=== PATIENT | female | born 1955 | race Caucasian/White ===

== ENCOUNTER 2019-05-21 13:26 | Emergency (ER) | payer OTHER, SELFPAY ==
[2019-05-21 13:27] VITALS: BP 163/84; PULSE 79; RESP 21; TEMP 36.7; O2SAT 99; BMI 26.6
--- NOTE | 2019-05-21 13:36 | ED.RN ---
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 PT STATES SHE IS VERY UPSET AND ANXIOUS.
--- NOTE | 2019-05-21 13:51 | EKG12_ITS ---
Test Reason : NUMBNESS Blood Pressure : / mmHG Vent. Rate : 073 BPM Atrial Rate : 073 BPM P-R Int : 134 ms QRS Dur : 076 ms QT Int : 396 ms P-R-T Axes : 029 -30 054 degrees QTc Int : 436 ms Normal sinus rhythm Left axis deviation Abnormal ECG Confirmed by CRISTI CHAIDEZ, SIERRA ([id number]), clinical editor NORY LOU ([id number]) on 05/26/2019 12:25:20 PM Referred By: LAILA Confirmed By:SIERRA COLIN MD
--- NOTE | 2019-05-21 13:53 | CT_ITS ---
STUDY: CTA HEAD AND NECK WITH CONTRAST REASON FOR EXAM: Female, 64 years old. Left-sided weakness. RADIATION DOSAGE (If Supplied By Facility): CTDIvol = ( 24.68 ) mGy, DLP = ( 1434.10 ) mGycm TECHNIQUE: CT angiography was performed with a multi-detector CT scanner. Data acquisition was obtained from the skull base through the vertex following intravenous administration of 100 IV Isovue 370. MIP images were reconstructed from the axial data set. Post-processing of the angiographic images was performed, with multiplanar reformation and 3D reconstruction. Individualized dose optimization techniques were used for this CT. COMPARISON: No relevant priors. FINDINGS: Normal bilateral petrous carotid arteries. Normal right cavernous carotid artery with a normal supraclinoid bifurcation. Normal left cavernous carotid artery with a normal supraclinoid bifurcation. Normal right A1 segments of the anterior cerebral artery. Normal left A1 segments of the anterior cerebral artery. Normal intact anterior communicating artery (ACOM). Normal bilateral A2 segments of the anterior cerebral arteries. Normal right M1 and M2 segments of the middle cerebral arteries, with a normal M1 bifurcation. Normal left M1 and M2 segments of the middle cerebral arteries, with a normal M1 bifurcation. Normal right posterior communicating artery (PCOM). Normal left posterior communicating artery (PCOM). Normal bilateral vertebral arteries. Normal basilar artery with a normal basilar bifurcation. The visualized bilateral superior cerebellar (SCA) arteries are normal. Normal bilateral P1, P2 and visualized P3 segments of the posterior cerebral arteries. There is no demonstrated aneurysm of the [place]. There is no demonstrated abnormality of the visualized brain. AORTIC ARCH: Normal visualized aortic arch. Normal origins of the brachiocephalic, left common carotid, and left subclavian arteries. RIGHT CAROTID ARTERIES: Normal right common carotid artery (CCA). Normal right common carotid bulb. Normal origin of the right internal carotid (ICA) artery without a hemodynamically significant stenosis. Normal visualized cervical portion of the right internal carotid artery. Normal origin of the right external carotid artery (ECA). LEFT CAROTID ARTERIES: Normal left common carotid artery (CCA). Normal left common carotid bulb. Normal origin of the left internal carotid (ICA) artery without a hemodynamically significant stenosis. Normal visualized cervical portion of the left internal carotid artery. Normal origin of the left external carotid artery (ECA). VERTEBRAL ARTERIES: Normal bilateral vertebral arteries. CT/CTA Head AND Neck W/ Contrast IMPRESSION: Normal CTA Head and neck with contrast. Electronically Signed: Livan Vallecillo, at 15:04 EDT , Service support ,
--- NOTE | 2019-05-21 13:55 | RAD_ITS ---
STUDY: X-RAY CHEST REASON FOR EXAM: Female, 64 years old. Left arm and facial numbness. TECHNIQUE: Single AP portable view of the chest. COMPARISON: Comparison is made with prior study dated June 11, 2010. FINDINGS: EKG electrodes are seen. The lungs are clear and expanded. There is no demonstrated pleural abnormality. Normal size heart. Normal mediastinum and mojgan. Normal visualized pulmonary arteries. Normal visualized aortic arch and descending thoracic aorta. There are diffuse degenerative changes of the visualized thoracic spine. Mild textural scoliosis. Normal visualized ribs, clavicles, and shoulders. There is no demonstrated abnormality of the visualized soft tissue structures of the upper abdomen. RAD/Chest 1 View (Portable) IMPRESSION: No acute abnormality is present. Electronically Signed: Livan Vallecillo, at 14:28 EDT , Service support ,
[2019-05-21] MEDS: 0.9% Normal Saline 1,000 ML 999 ML IV (14:07)
[2019-05-21 14:16] LABS: Absolute Lymphocyte Count 3.69 X10^3/uL (0.83-4.51); Absolute Neutrophil Count 2.2 X10^3/uL (2.0-7.7); Basophil# 0.02 X10^3/uL; Basophil% 0.3 % (0-1); Eosinophil# 0.06 X10^3/uL; Eosinophils% 0.9 % (0-5); Hematocrit 40.6 % (37-47); Hemoglobin 13.7 g/dL (12.0-15.0); Lymphocyte # 3.69 X10^3/ul (4.0); Lymphocyte % 57.7 % (19-41); Mean Corp Hgb Conc 33.7 g/dL (32-36); Mean Corpuscular Hgb 29.3 pg (27.0-32.0); Mean Corpuscular Volume 86.9 fL (81-99); Mean Platelet Vol. 9.3 fl (6.2-12.0); Monocyte# 0.39 X10^3/uL; Monocyte% 6.1 % (0-10); NRBC Flagged by Analyzer 0 % (0-5); Neutrophil # 2.23 X10^3/uL (2.7-7.7); Neutrophil % 34.8 % (47-70); Platelet Count 204 K/mm3 (150-450); RBC Distribution Width CV 12.8 % (11.6-14.6); RBC Distribution Width SD 40.6 fl (35.1-43.9); Red Blood Count 4.67 M/mm3 (4.2-5.4); White Blood Count 6.4 K/mm3 (4.4-11.0)
[2019-05-21 14:22] VITALS: BP 160/71; PULSE 70; RESP 17; O2SAT 98
[2019-05-21 14:29] LABS: Anion Gap 4 (5-15); BUN 15 mg/dL (7-18); BUN/Creat Ratio 25.9 RATIO (10-20); Calcium,Total 9.5 mg/dL (8.5-10.1); Chloride 106 mmol/L (98-107); Creatinine, Serum 0.58 mg/dL (0.55-1.02); EST Glomerular Filtration Rate 112 mL/min (>60); Est Glom Filt Rate - Afr Amer 135 mL/min (>60); Estimated Creatinine Clearance 81.06 ml/min; Glucose 105 mg/dL (74-106); Potassium 3.8 mmol/L (3.5-5.1); Sodium Level 138 mmol/L (136-145)
[2019-05-21 16:15] VITALS: BP 125/76; PULSE 76; RESP 16; O2SAT 97
--- NOTE | 2019-05-21 16:46 | ED.DCSUM_ITS ---
- ER Visit Summary Date of Service: 05/21/19 Chief Complaint: Left-sided subjective numbness and tingling. History of Present Illness: The patient is a 64 F history of hypertension high cholesterol prior PE and anxiety for which she uses as needed Xanax. Patient states she is under a lot of stress both at home with her being diagnosed with ALS and today at work she had to deal with several family members that were upset and she had a de-escalate the situation. 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 She was using the phone and felt that her face was odd and then thought she was getting numbness on her left face arm and leg. She does not believe she is ever had this before. She is never had a stroke or mini stroke. Denies any recent head injury. She is on no blood thinners. She has had no recent head injury. She denies any headache. No trouble talking. No visual change. No trouble walking or using her arms or legs. Physical Examination: Well-appearing female vital signs are stable and afebrile. HEENT exam normal. Pupils round reactive light extra motions are intact. No palsy. No facial droop. Normal speech. She has sensation on both sides of her face. Neck nontender. Lungs clear to auscultation bilaterally. Heart regular rhythm no murmur. Rate about 80. Abdomen is soft and nontender. Normal bowel sounds no peritoneal signs. Patient is moving all 4 extremities. They are neurovascularly intact. 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 Equal dorsi plantar flexion. She can lift either leg off the bed. She can raise either arm. Neurologically she is awake and alert. Her NIH score is 0. Again no facial droop. Normal speech. 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 Normal dorsi plantarflexion. Normal fingertip to nose and [id number]. After her work-up the nurses walked her in the hallway and she walked normally. Wi thout any ataxia. Test Results: CBC normal. White count of 6. Chemistries normal normal creatinine gap. EKG sinus rhythm a rate of 73 no acute signs of PA or ischemia or dysrhythmia. Chest x-ray portable one view shows no acute abnormality. Normal cardiac silhouette mediastinum. CTA head neck with and without contrast shows no acute abnormality and is read by the radiologist as normal. No signs of clot, bleed, mass nor any signs of stroke. I reviewed the test but it was read by the radiologist. Emergency Department Course and Treatment: Patient's work-up is normal. She had repeat neurologic exams all which were unchanged and normal. On repeat exam at 1640 5 PM she is starting to feel better. She says she feels less anxious. She feels like she is getting back to normal. She denies a family discussed options of admission for an MRI versus discharge. She much prefers to be discharged to home since she helps take care of her who is at bedside. She knows to return immediately if she develops worsening symptoms. Treatment Plan: Discharge to home. Follow-up with her primary care physician Dr. Rebolledo. Return if worsening symptoms. If symptoms do not totally resolve she will need an MRI. Disposition: Discharge Impression: Acute subjective left-sided tingling of uncertain etiology resolved Acute on chronic anxiety This note was generated with [employer] dictation software. It may contain incorrect words, spelling, and punctuation that were not noted in review of the chart prior to signing ED Disposition - Plan for ED Patient: Referrals: Yenifer Rebolledo MD [Primary Care Provider] -
--- NOTE | 2019-05-21 16:51 | ED.DEP ---
ED Disposition - Plan for ED Patient: Disposition: Home or Assisted Living Instructions: Paraesthesias Referrals: Yenifer Rebolledo MD [Primary Care Provider] - As soon as possible Additional Instructions: Follow-up with your doctor in the next several days. Return if trouble speaking, visual change or worsening left-sided symptoms. Also if any weakness or trouble walking. He would need to be admitted at that time and have an MRI. At this time your work-up including labs, EKG, chest x-ray and CAT scans were all normal. Your neurologic exam is normal in the emergency department.
[2019-05-21 17:02] VITALS: BP 117/70; PULSE 68; RESP 18; O2SAT 99
== END 2019-05-21 17:03 | disposition home or self-care (01) ==
PROVIDERS: Emergency Provider Emergency Medicine; Family Provider Internal Medicine; PCP Internal Medicine
DX: F41.9 Anxiety disorder, unspecified (principal); R20.2 Paresthesia of skin; I10 Essential (primary) hypertension; E78.00 Pure hypercholesterolemia, unspecified; Z86.711 Personal history of pulmonary embolism; Z79.899 Other long term (current) drug therapy
CPT/HCPCS: 36415; 70496; 70498; 71045; 80048; 85025; 93005; 96360; 99285; J7030; Q9967

== ENCOUNTER 2020-02-07 16:27 | Emergency (ER) | payer OTHER, SELFPAY ==
[2020-02-07 16:27] VITALS: BP 146/87; PULSE 79; RESP 14; TEMP 36.9; O2SAT 99; BMI 24.0
--- NOTE | 2020-02-07 16:37 | ED.DCSUM_ITS ---
- ER Visit Summary Date of Service: 02/07/20 Chief Complaint: Right wrist pain and deformity History of Present Illness: The patient is a 64 F patient has right wrist pain and deformity. She states she was outside working when she fell into a trash can. She caught herself with her right arm. She noticed a deformity on the palm side of the distal forearm/wrist area. Pain is worse with movement. No previous injuries or fractures to this area. She is not on any blood thinning medications. She tried ibuprofen without any relief. Physical Examination: Vital signs are reviewed. Right arm exam reveals tenderness palpation diffusely about the wrist and distal forearm. There is a deformity at the wrist area on the palm side. She has a 2+ radial pulse. Capillary refill is less than 2 seconds. Test Results: Right wrist x-ray reveals no acute findings Emergency Department Course and Treatment: The patient appears to have a hematoma on the right wrist. There are no broken bones. Patient was recommended to use Tylenol along with icing at home to prevent hematoma spread. She has good distal pulses and good capillary refill. Patient will follow up with her doctor next week Treatment Plan: [] Disposition: Discharge Impression: Right wrist hematoma This note was generated with [employer] dictation software. It may contain incorrect words, spelling, and punctuation that were not noted in review of the chart prior to signing ED Disposition - Plan for ED Patient: Disposition: Home or Assisted Living Instructions: ED Hematoma Referrals: Yenifer Rebolledo MD [Primary Care Provider] -
--- NOTE | 2020-02-07 17:15 | RAD_ITS ---
STUDY: X-RAY - RIGHT WRIST REASON FOR EXAM: Female, 64 years old. FALL, PAIN. BRUISING AND SWELLING TECHNIQUE: 3 view(s) of the wrist were obtained. COMPARISON: 05/03/2017 FINDINGS: Normal visualized distal radius and ulna. Normal radiocarpal articulation. Normal distal radioulnar articulation. Normal carpal bones. Normal carpal articulations. Normal carpometacarpal articulation of the thumb. Normal second through fifth carpometacarpal articulations. Normal visualized metacarpal bones. Soft tissue swelling. RAD/Wrist min 3 Views IMPRESSION: No acute osseous injury is evident. Electronically Signed: Kevin Kimbrough MD at 17:37 EDT Tel , Service support ,
[2020-02-07 18:03] VITALS: RESP 16
== END 2020-02-07 18:04 | disposition home or self-care (01) ==
PROVIDERS: Emergency Provider Emergency Medicine; PCP Internal Medicine
DX: S60.211A Contusion of right wrist, initial encounter (principal); W17.89XA Other fall from one level to another, initial encounter; Y93.9 Activity, unspecified; Y92.9 Unspecified place or not applicable; I10 Essential (primary) hypertension; F41.9 Anxiety disorder, unspecified; E78.00 Pure hypercholesterolemia, unspecified; Z79.899 Other long term (current) drug therapy
CPT/HCPCS: 73110; 99282

== ENCOUNTER 2021-07-15 13:00 | Outpatient (RCR) | payer MEDICARE, SELFPAY ==
--- NOTE | 2021-05-30 09:02 | HP.PTEVAL_ITS ---
Patient's Visit Information RAMAKRISHNA AL is a 66 year old F referred to Physical Therapy by Dr. Elmo Granger DPM with a diagnosis of L Achilles tendonitis. Date of Evaluation: 05/27/21 Physical Therapist: Robbi Connors DPT - Visit Plan Frequency: 2x /Week Duration: 4 Weeks Plan: Start with ankle DF stretching, progress ankle, knee and hip strengthening in aquatic setting. Progress gait mechanics with increased tolerance. Progress as tolerated. Progress HEP to increase consistency with stretching. - Subjective Pt. is here today for her L achilles tendonitis. Pt. reports having pain for ~6- 7 months with no mech of injury. Pt. reports having pain at posterior Achilles with walking and standing. Increases symptoms: AMs, initial walking after prolonged sitting, stairs, heel raises. Decreases pain: rest, ice, ibuprophen. Pt. did see her physician who reports she has tendonitis along with 2 calcaneal heel spurs. Pt. was given some stretching to complete, but reports not being diligent with stretching. She is retired, but is still active and her achilles is not letting her be as active as she would like to be. No pain with sleeping, initial steps after getting up in AM are intense, reduces with increased walking, but then gets worse by the end of the day. She did try an insert which is helping. Pt. is hopeful to reduce symptoms in order to get back to all recreational walking and activities without limitation. - Pain L achilles tendon Pain Intensity (Out of 10): 3 Pain Intensity Range: 1, 8 - Objective POSTURE: Pt. has normal posture in stance, normal wt. shift. Pt. has slight equinus foot on the L side. PALPATION: Pt. has tenderness along middle and distal 2/3s of achilles tendon and insertion at calcaneus. NEURO: Pt. has normal DTR of B Achilles and patellar DTR. Pt. has normal sensation of BLEs. ROM:R ankle: full ROM, except DF which is limited to 12deg. L ankle: PF 48deg, INV 20deg, EVR 12deg, DF 2deg. Pt. reports increased achilles tendon pain as limiting factor with L ankle DF. Pt. has normal knee ROM and hip ROM. MMT: R ankle 5/5 throughout; knee: 5/5 throughout; hip- flexion 4+/5, abd 4/5, ext 4/5. LLE: ankle 5/5 throughout (increase in symptoms with PF); knee: ext 5/5, flexion 5/5; hip: flexion 4+/5, abd 4/5, ext 4/5. Core strength- poor+. GAIT: Pt. had decreased R step length with early L heel off during prewing phase. Pt. tends to hyper ext L knee as well, most likely to reduce DF motion. STAIRS: PT. reports feeling weak with ascending during L push off. Increased early heel off with descending on stairs. Uses 2 HR to complete. - Goals Goal 1:: LTG: Pt. to be I with HEP. Goal Time Frame: 2-4 Weeks Goal 2:: STG: Pt. to sleep throughout the night without increase in symptoms. Goal Time Frame: 2 Weeks Goal 3:: STG: Pt. to be able to have decreased pain with initial walking in AMs to 0-2/10 pain in L Achilles. Goal Time Frame: 2 Weeks Goal 4:: LTG: Pt. to ambulate unlimited distances without increase in symptoms. Goal Time Frame: 2-4 Weeks Goal 5:: STG: Pt. to have increased L ankle DF to atleast 14deg allowing to increase tolerance to gait and stair negotiation. Goal Time Frame: 2-4 Weeks Goal 6:: LTG: Pt. to increased L LE strength increased to 5/5 throughout including ankle, knee and hip musculature. Goal Time Frame: 4-6 Weeks - Rehabilitation Potential Physical Therapy Diagnosis: Pt. has signs and symptoms consistent with L Achilles tendonitis. Pt. has limited L ankle ROM, most notably into DF resulting in altered gait mechanics. Her symptoms are effecting her gait, and recreational activities. She would benefit from PT to increase her ROM, progressing to gait tolerance and and strengthening. Rehabilitation Potential: Excellent - Anticipated Interventions Patient/Client Instruction: Educate patient on: Condition, Plan of Care, Risk Factors, Benefits of Fitness Program For the Purpose of:: To foster healthy habits, To improve decision making, To facilitate caregiver knowledge, To improve self management, To prevent re- injury, To improve ability to perform tasks related to life management Therapeutic Exercise to Include: Strength training, Power training, Postural training, Flexibilty training, Gait and locomotor training, In an aquatic setting, Passive ROM, Active ROM For the Purpose of:: To decrease pain, To decrease swelling/inflammation, To increase ROM, To improve nutrient delivery to tissue, To increase oxygenation perfusion, To improve ability of physical actions for home/community/work/leisure, To improve gait and locomotor functions, To improve health of tissue, To decrease soft tissue restriction, To increase flexibility/ROM Manual Therapy Techniques to Include: Mobilization For the Purpose of:: To decrease pain, To decrease swelling/inflammation, To increase ROM, To improve nutrient delivery to tissue, To increase oxygenation perfusion, To improve ability of physical actions for home/community/work/leisure, To improve gait and locomotor functions, To improve health of tissue, To decrease soft tissue restriction, To increase flexibility/ROM Thank you for the opportunity to evaluate your patient. For Medicare and Medicare HMO plans, please review the plan of care and approve it. It will need to be FAXED BACK to us at [phone] for Medicare purposes. For Medicare only, by signing this I certify the plan of care. Please let me know if there are questions or concerns regarding this plan of care. Physician Signature: Date:
--- NOTE | 2021-06-24 12:21 | HP.PTREVAL_ITS ---
Dr. Elmo Granger, DPM, It has been my pleasure to treat RAMAKRISHNA AL over the last 6 visits for L Achilles tendonitis. Please see the progress note below for an update on the physical therapy plan of care! Subjective: Pt. reports overall doing better, but is still having a lot of tightness with initial steps after sustained sitting, PF positioning. She reports stretching x2 possibly 3 times per day. Pt. does reports overall 60% improvment. Objective/Function: Pt. is overall progressing well. She was hoping to progress to gym exercises at this point in time. She is overall doing well. I showed her two calf strengthening exercises today in gym I would like her progress as tolerated. She has increased DF of her L ankle to 15deg DF. She is having some tenderness to palpation, but minimal mostly at distal insertion. She is to progress with stretching at home. Plan Plan: Next visit show her HEP with gym focus on calf strengthening stretching and LE strengthening. She will do this program for 1-2 weeks to determine if she can self progress. If not progressing I will have her come back into PT. Balance/Gait/Functional tests - Balance/Special Test Scores Lower Extremity Functional Score: 54 Goals Goal 1:: LTG: Pt. to be I with HEP. Goal Time Frame: 2-4 Weeks Goal Progress: Progressing Goal 2:: STG: Pt. to sleep throughout the night without increase in symptoms. Goal Time Frame: 2 Weeks Goal Progress: Goal Met Goal 3:: STG: Pt. to be able to have decreased pain with initial walking in AMs to 0-2/10 pain in L Achilles. Goal Time Frame: 2 Weeks Goal Progress: Progressing Goal 4:: LTG: Pt. to ambulate unlimited distances without increase in symptoms. Goal Time Frame: 2-4 Weeks Goal 5:: STG: Pt. to have increased L ankle DF to atleast 14deg allowing to increase tolerance to gait and stair negotiation. Goal Time Frame: 2-4 Weeks Goal Progress: Goal Met Goal 6:: LTG: Pt. to increased L LE strength increased to 5/5 throughout including ankle, knee and hip musculature. Goal Time Frame: 2-4 Weeks Goal Progress: Progressing Anticipated Interventions Patient/Client Instruction: Educate patient on: Condition, Plan of Care, Risk Factors, Benefits of Fitness Program For the Purpose of:: To foster healthy habits, To improve decision making, To facilitate caregiver knowledge, To improve self management, To prevent re- injury, To improve ability to perform tasks related to life management Therapeutic Exercise to Include: Strength training, Power training, Postural training, Flexibilty training, Gait and locomotor training, In an aquatic setting, Passive ROM, Active ROM For the Purpose of:: To decrease pain, To decrease swelling/inflammation, To increase ROM, To improve nutrient delivery to tissue, To increase oxygenation perfusion, To improve ability of physical actions for home/community/work/leisure, To improve gait and locomotor functions, To improve health of tissue, To decrease soft tissue restriction, To increase flexibility/ROM Manual Therapy Techniques to Include: Mobilization For the Purpose of:: To decrease pain, To decrease swelling/inflammation, To increase ROM, To improve nutrient delivery to tissue, To increase oxygenation perfusion, To improve ability of physical actions for home/community/work/leisure, To improve gait and locomotor functions, To improve health of tissue, To decrease soft tissue restriction, To increase flexibility/ROM Please do not hesitate to contact me at [phone] by phone or if you have questions or concerns regarding this new plan of care! Sincerely, Robbi Connors DPT
--- NOTE | 2021-10-04 12:08 | HP.PTDCSUM_ITS ---
It has been my pleasure to treat RAMAKRISHNA AL referred by Dr. Elmo Granger DPM, with the diagnosis of L Achilles tendonitis for a total of 11 visit(s). Discharge Date: 07/15/21 Please see the following information for a summary of their discharge status. Subjective: pt. reports overall only slight better ~25% better overall. Pt. reports only being compliant with her HEP ~50% of the time. She is still having soreness with walking and in Ams. L achilles tendon Pain Intensity (Out of 10): 3 % Improvement: 25 Objective/Function: Pt. continues to have tight Bilateral calves into DF. Pt. has 10deg on R and 8 deg on L. pt. reports stretching, but not consistently. She did trial more eccentric exercises which caused increased pain the next day. I talked to her at her last visit about stretching frequently, but not aggressively. She might need to look into night splints as well. She has decent strength without issues, pain with eccentric heel raises. Goal 1:: LTG: Pt. to be I with HEP. Goal Progress: Goal Met Goal 2:: STG: Pt. to sleep throughout the night without increase in symptoms. Goal Progress: Goal Met Goal 3:: STG: Pt. to be able to have decreased pain with initial walking in AMs to 0-2/10 pain in L Achilles. Goal Progress: Progressing Goal 4:: LTG: Pt. to ambulate unlimited distances without increase in symptoms. Goal Progress: Progressing Goal 5:: STG: Pt. to have increased L ankle DF to atleast 14deg allowing to increase tolerance to gait and stair negotiation. Goal Progress: Progressing Goal 6:: LTG: Pt. to increased L LE strength increased to 5/5 throughout includ ing ankle, knee and hip musculature. Goal Progress: Progressing Plan: At this point in time. I will DC back to physician due to lack of progress. Discharge Comments: Pt. had minimal change in her symptoms. She has increased B ankle strength, but did not seem to change her pain much. She has some improvement with her ROM, but is still tight. I would like her to get back to being frequent with her stretch but lightly. Pt. will be DC to physician at this point in time. If there are questions or concerns regarding this patient's physical therapy, please feel free to call me at [phone]. Thank you for the referral of this patient. Sincerely, Robbi Connors, HARPERT Balance/Gait/Functional tests - Balance/Special Test Scores Lower Extremity Functional Score: 54
== END 2021-07-15 19:00 | disposition home or self-care (01) ==
LOC: PT 13:00
PROVIDERS: PCP Internal Medicine; Referring Provider Podiatrist Foot & Ankle Surgery; Visit Provider Podiatrist Foot & Ankle Surgery
DX: M76.62 Achilles tendinitis, left leg (principal); M77.32 Calcaneal spur, left foot
CPT/HCPCS: 97110; 97113; 97161; 97164

== ENCOUNTER → 2021-08-18 11:05 | Outpatient (CLI) | payer MEDICARE, SELFPAY ==
--- NOTE | 2021-08-18 11:10 | US_ITS ---
STUDY: RENAL ULTRASOUND - COMPLETE REASON FOR EXAM: Female, 66 years old. UTI- RECURRENT TECHNIQUE: Ultrasound evaluation of the kidneys was performed with real-time and static garnica-scale imaging. COMPARISON: None. FINDINGS: RIGHT KIDNEY: Normal location of the right kidney, which is normal in size. The right kidney measures 9.2 cm x 4.3 cm x 5.4 cm. There is a normal cortex of the right kidney. The renal cortex measures 1.1 cm. There is no right renal mass or cyst. There are no right renal calculi. There is no right hydronephrosis. DISTAL RIGHT URETER: There is non-visualization of the distal right ureter. There is no demonstrated right ureterovesical junction calculus. There is a visualized right ureteral jet. LEFT KIDNEY: Normal location of the left kidney, which is normal in size. The left kidney measures 10.8 cm x 5.6 cm x 4.8 cm. There is a normal cortex of the left kidney. The renal cortex measures 1.1 cm. There is no left renal mass or cyst. There are no left renal calculi. There is no left hydronephrosis. DISTAL LEFT URETER: There is non-visualization of the distal left ureter. There is no demonstrated left ureterovesical junction calculus. There is a visualized left ureteral jet. BLADDER: The distended urinary bladder has a volume of 479 ml. There is a normal wall thickness of the distended urinary bladder. There is no demonstrated mass within the urinary bladder. There are no demonstrated bladder calculi. US/Kidney and Bladder IMPRESSION: Normal ultrasound of the kidneys and urinary bladder. Electronically Signed: Livan Vallecillo MD at 14:51 EDT , Service support ,
== END ==
PROVIDERS: PCP Internal Medicine; Visit Provider Urology
DX: N39.0 Urinary tract infection, site not specified (principal)
CPT/HCPCS: 76770

== ENCOUNTER → 2022-03-16 | Outpatient (CLI) | payer MEDICARE, SELFPAY ==
[2022-03-16 17:52] LABS: Color, Urine Straw (Yellow); Glucose, Dipstick Normal (Normal); Ketone-Dipstick Negative (Negative); Leukocyte Esterase-Dipstick Negative /ul (Negative); Nitrite-Dipstick Negative (Negative); Occult Blood-Urine 10 /ul (Negative); Protein-Dipstick Negative (Negative); Specific Gravity, Urine 1.005 (1.002-1.030); Urine Bilirubin Dipstick Negative (Negative); Urine Clarity Clear (Clear); Urine Urobilinogen Normal (Normal); Urine pH 6.5 (5.0 - 8.0)
== END | disposition home or self-care (01) ==
PROVIDERS: PCP Internal Medicine; Referring Provider Urology; Visit Provider Urology
DX: N39.0 Urinary tract infection, site not specified (principal); R30.0 Dysuria
CPT/HCPCS: 81002; 87086; 87088

== ENCOUNTER 2023-03-23 12:00 | Outpatient (RCR) | payer MEDICARE, SELFPAY ==
--- NOTE | 2023-02-09 15:25 | HP.PTEVAL_ITS ---
Patient's Visit Information RAMAKRISHNA AL is a 67 year old F referred to Physical Therapy by Dr. Yenifer Rebolledo MD with a diagnosis of LUMBAR RADICULOPATHY. Date of Evaluation: 02/09/23 Physical Therapist: Dick Redding, PT, Cert MDT, OCS - Visit Plan Frequency: 2x /Week Duration: 4 Weeks Plan: PATIENT HAS SEVERE ANXIETY . PT INTERVETIONS DLS ,POSTURAL EX' ,ACTIVITY MODIFICATION ,US POSTURAL/BODY MECHANICS AND GRADED LUMBAR ROM ALEJANDRO - Subjective This 67 y/o female presents to physical therapy with lumbar radiculopathy. Patient has developed symptoms right > left leg Nov 2022. Patient seen DR did MRI broad -based HNP mod stenosis . Recommended PT and tried chiropractor. Patient has no pain but has quivering in right > left leg. Aggravating symptoms sitting ,lifting ,bending . Alleviating factors walking and standing. C oughing/sneezing -. Bowel/bladder-. Patient has tingling and occasional paresthesia. Patient sleep is affected by pain. Patient symptoms affects QOL but patient has extreme anxiety which can increase symptoms. Patient did a lot of bending and lifting in yard which made symptoms worse,. Patient gets counseling. Patient has no H/O back . Patient has no abnormal night pain. Patient pain affects QOL and function along with anxiety influences in condition. Pain plans ton see orthopedic DR /pain specialist. SOCIAL: . VOCATION: retired - Pain Right Knee Pain Intensity (Out of 10): 2 Right Lower Extremity Pain Intensity (Out of 10): 2 Comment: quivering - Objective POSTURE: mild forward posture ,right leg 1/4 shorter ,pelvis asymmetrical to thoracic- lumbar scoliosis ,scapular winging right > left. NEURO: occasional tingling and quivery right leg ,reflexes L3-4 ,L4-5 ,L4-L5 1/3. PALAPTION: tender SI. GAIT: symmetrical pattern. FLEXABILITY: hamstrings min tight. HIP ROM: IR 0 degrees - Special Tests L/S Slump test left side: Negative L/S Slump test right side: Negative L/S Left Straight Leg Raise: Negative L/S Right Straight Leg Raise: Negative Lumbar Standing: Flexion - Mechanical Response: No effect Lumbar Standing: Flexion - Symptoms During Testing: Increases Lumbar Standing: Flexion - Symptoms After Testing: No worse Lumbar Standing: Extension - Mechanical Response: No effect Lumbar Standing: Extension - Symptoms During Testing: Increases Lumbar Standing: Extension - Symptoms After Testing: No worse Comments:: tingling Lumbar Standing: Right Side Glides - Mechanical Response: No effect Lumbar Standing: Right Side [place] - Symptoms During Testing: No effect Lumbar Standing: Right Side [place] - Symptoms After Testing: No effect Lumbar Standing: Left Side [place] - Mechanical Response: No effect Lumbar Standing: Left Side [place] - Symptoms During Testing: No effect Lumbar Standing: Left Side [place] - Symptoms After Testing: No effect Lumbar Lying: Flexion - Mechanical Response: No effect Lumbar Lying: Flexion - Symptoms During Testing: Increases Lumbar Lying: Flexion - Symptoms After Testing: Worse Comments:: tingle in feeet Lumbar Lying: Extension - Mechanical Response: No effect Lumbar Lying: Extension - Symptoms During Testing: Increases Lumbar Lying: Extension - Symptoms After Testing: Worse Comments:: tingling in feet - Balance/Special Test Scores Oswestry Low Back Score: 26 - Goals Goal 1:: Patient to be I with HEP for lumbar Goal Time Frame: 4-6 Weeks Goal 2:: Patient to improve lumbar ROM for function of recovery for housework tasks Goal Time Frame: 4-6 Weeks Goal 3:: Patient to demonstrate 50% improvement with increase function and less symptoms in legs Goal Time Frame: 4-6 Weeks Goal 4:: Patient to improve back oswestry score by 5 points to improve QOL. Goal Time Frame: 4-6 Weeks Goal 5:: Patient to improve function and positive reinforcement to mange symptoms Goal Time Frame: 4-6 Weeks - Rehabilitation Potential Rehabilitation Potential: Good - Anticipated Interventions Thank you for the opportunity to evaluate your patient. For Medicare and Medicare HMO plans, please review the plan of care and approve it. It will need to be FAXED BACK to us at [phone] for Medicare purposes. For Medicare only, by signing this I certify the plan of care. Please let me know if there are questions or concerns regarding this plan of care. Physician Signature : Date:
--- NOTE | 2023-03-23 12:31 | HP.PTDCSUM_ITS ---
It has been my pleasure to treat RAMAKRISHNA AL referred by Dr. Yenifer Rebolledo MD, with the diagnosis of LUMBAR RADICULOPATHY for a total of 8 visit(s). Discharge Date: 03/23/23 Please see the following information for a summary of their discharge status. Subjective: Doing well Right Knee Pain Intensity (Out of 10): 0 Right Lower Extremity Pain Intensity (Out of 10): 1 Bilateral Back Pain Intensity (Out of 10): 1 % Improvement: 50 Objective/Function: POSTURE: mild forward posture ,right leg 1/4 shorter ,pelvis asymmetrical due to thoracic- lumbar scoliosis ,scapular winging right > left. NEURO: ,reflexes L3-4 ,L4-5 ,L4-L5 1/3. PALAPTION: tender SI. GAIT: symmetrical pattern. FLEXABILITY: hamstrings min tight. HIP ROM: IR 0 degrees. MMT: QUADS/HAMS 4/5 ,HIP FLEXION 4-/5 Goal 1:: Patient to be I with HEP for lumbar Goal Progress: Goal Met Goal 2:: Patient to improve lumbar ROM for function of recovery for housework t asks Goal Progress: Goal Met Goal 3:: Patient to demonstrate 50% improvement with increase function and less symptoms in legs Goal Progress: Goal Met Goal 4:: Patient to improve back oswestry score by 5 points to improve QOL. Goal Progress: Goal Met Goal 5:: Patient to improve function and positive reinforcement to mange symptoms Goal Progress: Goal Met Plan: D/C Discharge Comments: HEP AND GYM PROGRAM If there are questions or concerns regarding this patient's physical therapy, please feel free to call me at [phone]. Thank you for the referral of this patient. Sincerely, Dick Redding, PT, Cert MDT, OCS Balance/Gait/Functional tests - Balance/Special Test Scores Oswestry Low Back Score: 6
== END 2023-03-23 19:00 | disposition home or self-care (01) ==
LOC: PT 12:00
PROVIDERS: PCP Internal Medicine; Referring Provider Internal Medicine; Visit Provider Internal Medicine
DX: M54.16 Radiculopathy, lumbar region (principal); M48.061 Spinal stenosis, lumbar region without neurogenic claudication; M51.36 Other intervertebral disc degeneration, lumbar region
CPT/HCPCS: 97110; 97162